=== PATIENT | male | born 1945 | race African-American/Black ===

== ENCOUNTER 2017-04-13 18:14 | Emergency (ER) | payer OTHER, MEDICARE, MEDICAID ==
[2017-04-13] MEDS ORDERED: LIDOCAINE 5% (700 MG) TRANSDERMAL ADH..PATCH TP ONE (20:55)
[2017-04-13] MEDS ORDERED: IBUPROFEN 600 MG TABLET PO ONE (20:56)
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
[2017-04-13 21:35] VITALS: BP 158/98
== END 2017-04-13 21:35 | disposition home or self-care (01) ==
LOC: ER 18:14
DX: M54.2 Cervicalgia (principal); M54.5 Low back pain; V89.2XXA Person injured in unspecified motor-vehicle accident, traffic, initial encounter
CPT/HCPCS: 99283

== ENCOUNTER 2018-08-30 19:06 | Emergency (ER) | payer MEDICARE, MEDICAID ==
[2018-08-30] MEDS ORDERED: CLONIDINE HCL 0.1 MG TABLET PO ONE (19:56)
--- NOTE | 2018-08-30 19:59 | ER Document Report ---
Addendum entered and electronically signed by GENARO BAXTER PA-C 08/30/18 21:00: Discharge - Discharge Clinical Impression: Elevated serum creatinine Hypertension Qualifiers: Hypertension type: unspecified Qualified Code(s): I10 - Essential (primary) hypertension Condition: Good Disposition: HOME, SELF-CARE Instructions: Angiotensin Converting Enzyme Inhibitor Medication ([facility]), High Blood Pressure ([facility]) Additional Instructions: Please follow-up with your doctor in the next couple of days but be sure to see the specialist in [place] regarding your kidney functions. Referrals: NICOLAS GAYTAN MD [Primary Care Provider] - Follow up in 3-5 days Original Note: ED General - General Chief Complaint: High Blood Pressure Stated Complaint: BLOOD PRESSURE PROBLEMS Time Seen by Provider: 08/30/18 19:42 Primary Care Provider: NICOLAS GAYTAN MD [Primary Care Provider] - Follow up as needed Mode of Arrival: Ambulatory Information source: Parent TRAVEL OUTSIDE OF THE [place] IN LAST 30 DAYS: No - HPI Patient complains to provider of: elevated blood pressure Onset: Last week Onset/Duration: Gradual Quality of pain: No pain Severity: None Pain Level: Denies Associated symptoms: None Exacerbated by: Denies Relieved by: Denies Similar symptoms previously: No Recently seen / treated by doctor: No Notes: 73-year-old -[place] male coming in today at the request of the walk-in clinic for blood pressure problems. Patient recently was treated for a sinus infection. He has been following his blood pressure readings at home and became alarmed. He followed up in the walk-in clinic who then prompted him to come here for further treatment. Patient is actually asymptomatic otherwise. He does not have any chest pain, shortness of breath, dizziness, lightheadedness, or syncope. - Related Data Allergies/Adverse Reactions: No Known Allergies Allergy (Verified 08/30/18 19:08) Past Medical History - General Information source: Patient - Social History Smoking Status: Never Smoker Family History: Reviewed & Not Pertinent Renal/ Medical History: Denies: Hx Peritoneal Dialysis Review of Systems - Review of Systems Notes: Constitutional: No fevers. No chills. EENT: No eye redness. No eye pain. No ear pain. No sore throat. Cardiovascular: No chest pain. No palpitations. Respiratory: No cough. No shortness of breath. No respiratory distress. Gastrointestinal: No abdominal pain. No nausea, vomiting, or diarrhea. Genitourinary: Atraumatic. No lesions. No pain. No discharge. Musculoskeletal: Atraumatic. No swelling. No deformities. Skin: No rash or lesions. Lymphatic: No swollen lymph nodes. Neurologic: No headache. No syncope. Psychiatric: No suicidal or homicidal ideation. Physical Exam - Vital signs Vitals: Temp Pulse Resp BP Pulse Ox 98.5 F 75 14 178/92 H 96 08/30/18 19:13 08/30/18 19:13 08/30/18 19:13 08/30/18 19:13 08/30/18 19:13 - Notes Notes: General: Well-developed, well-nourished. In no acute distress. Non-toxic appearing. Cardiac: Well-perfused. Regular rate and rhythm. No murmurs, rubs, or gallops. Pulmonary: No respiratory distress. No cyanosis. Bilateral lung fiels are clear to auscultation. Abdominal: Non-distended. Non-rigid. Bowels sounds are present in all four quadrants. No guarding or rebound. HEENT: Head is atraumatic. Conjunctivae not reddened. No tearing. PERRL. EOMI. Orbits atraumatic. No periorbital swelling or erythema. Oropharynx is without erythema, swelling, or exudates. Neck: Supple. No adenopathy. No meningismus. Dermatologic: Warm with good turgor. No rash. Atraumatic. Chest: Atraumatic. No chest wall tenderness to palpation. Musculoskeletal: Moves all extremities well. No range of motion deficits. no muscular or joint tenderness. No paraspinal muscle tenderness. no midline spinal tenderness or step-off. Genitourinary: Examination deferred Neurologic: No gross neurologic deficits. Psychiatric: Normal mood. Course - Re-evaluation Re-evalutation: 08/30/18 19:57 Patient is asymptomatic. Present blood pressure is 170s over 115. We will go ahead and check his BUN and creatinine. Give him a single dose of clonidine. 08/30/18 20:55 Patient has a minimally elevated creatinine. After discussion with him, it turns out that he will be seeing a adult care provider in the first week of September in [place]. I told him to be sure to have his doctor get the results of from our tests to carry with him to that appointment. Blood pressure 171/105. Not going to make any adjustments to blood pressure medications at this time. He has appropriate specialty follow-up. He may see his doctor in the next couple days but mostly the appointment with the adult care provider is the most important. - Vital Signs Vital signs: Temp Pulse Resp BP Pulse Ox 98.5 F 75 16 178/95 H 99 08/30/18 19:13 08/30/18 19:13 08/30/18 20:30 08/30/18 20:30 08/30/18 20:30 - Laboratory Result Diagrams: 08/30/18 20:00 Laboratory results interpreted by me: 08/30/18 20:00 Creatinine 1.34 H Est GFR (Non-Af Amer) 53 L Discharge - Discharge Clinical Impression: Elevated serum creatinine, Hypertension Condition: Good Disposition: HOME, SELF-CARE Instructions: Angiotensin Converting Enzyme Inhibitor Medication ([facility]), High Blood Pressure ([facility]) Additional Instructions: Please follow-up with your doctor in the next couple of days but be sure to see the specialist in [place] regarding your kidney functions. Referrals: NICOLAS GAYTAN MD [Primary Care Provider] - Follow up in 3-5 days
[2018-08-30 20:44] LABS: ANION GAP 8 (5-19); BLOOD UREA NITROGEN 10 mg/dL (7-20); CALCIUM 9.6 mg/dL (8.4-10.2); CARBON DIOXIDE 30 mmol/L (22-30); CHLORIDE 103 mmol/L (98-107); GLUCOSE 94 mg/dL (75-110); SODIUM 140.9 mmol/L (137-145)
[2018-08-30 21:37] VITALS: BP 152/95
== END 2018-08-30 21:20 | disposition home or self-care (01) ==
LOC: ER 19:06
DX: I10 Essential (primary) hypertension (principal); R79.89 Other specified abnormal findings of blood chemistry
CPT/HCPCS: 99283; 36415; 80048; A9270